=== PATIENT | female | born 1960 | race Caucasian/White ===

== ENCOUNTER 2017-04-18 12:18 | Emergency (ER) | payer OTHER ==
[~2017-04-18] VITALS: Ht 154.9 cm; Wt 76.2 kg
--- NOTE | ~2017-04-18 | EKG ---
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 GARCIA : 1960 Requested By: Tamiko Montesinos Order Number: [id number] MD: Kenji Singh Measurements Intervals [place] Rate: 69 P: 5 NV: 168 QRS: -34 QRSD: 88 T: 23 QT: 380 QTc: 407 Interpretive Statements Sinus rhythm Supraventricular bigeminy Left axis deviation Compared to ECG 03/07/1992 17:23:00 Atrial premature complex(es) now present Left-axis deviation now present Electronically Signed On 04-18-2017 13:18:28 [employer] by Kenji Singh [email or web address] <ELECTRONICALLY SIGNED> By: Kenji Singh MD 04/18/17 1318 27 Kenji Singh MD /ANKUSH
[2017-04-18] MEDS ORDERED: ERGOCALCIF50000 UNIT PO (12:30)
[2017-04-18] MEDS ORDERED: DICLOFENAC SOD50 M1 PO (12:30)
[2017-04-18] MEDS ORDERED: BRINTELLIX10 MG PO (12:30)
[2017-04-18 12:44] LABS: ABSOLUTE NEUTROPHILS 6.9 thou/uL (1.4-8.2); BASOPHILS 0.7 % (0.0-2.0); EOSINOPHILS 0.3 % (0.0-3.0); HEMATOCRIT 46.1 % (37.0-47.0); HEMOGLOBIN 15.8 gm/dL (12.0-15.0); LYMPHOCYTES 16.6 % (24.0-44.0); MCH 29.5 pg (26.0-34.0); MCHC 34.2 g/dL (28.0-37.0); MCV 86.1 fL (80.0-100.0); MONOCYTES 4.2 % (1.0-8.0); PLATELET COUNT 233 thou/uL (150-400); POLYS 78.2 % (36.0-66.0); RBC 5.35 mil/uL (4.20-5.00); RDW 13.7 % (10.5-14.5); WBC 8.8 thou/uL (4.0-11.0)
[2017-04-18 12:50] LABS: ANION GAP 13 mmol/L (7-16); BUN 16 mg/dL (7-18); CALCIUM 8.9 mg/dL (8.5-10.1); CHLORIDE 107 mmol/L (98-107); CO2 20 mmol/L (21-32); CREATININE 0.9 mg/dL (0.6-1.0); GLUCOSE 98 mg/dL (74-106); POTASSIUM 3.6 mmol/L (3.5-5.1); SODIUM 140 mmol/L (136-145)
[2017-04-18 12:58] LABS: TROPONIN-I < 0.04 ng/mL (<0.06)
[2017-04-18 14:11] LABS: ALBUMIN 3.6 g/dL (3.4-5.0); DIRECT BILIRUBIN 0.1 mg/dL (<0.1-0.3); TOTAL BILIRUBIN 0.5 mg/dL (<0.1-1.0); TOTAL PROTEIN 6.8 g/dL (6.4-8.2)
[2017-04-18] MEDS ORDERED: ZOFRAN ODT4 MG PO (14:50)
== END 2017-04-18 15:21 | disposition home or self-care (01) ==
LOC: ER 12:18
PROVIDERS: Emergency Medicine
DX: K21.9 Gastro-esophageal reflux disease without esophagitis (principal); R42 Dizziness and giddiness; R07.9 Chest pain, unspecified; R11.0 Nausea; F41.9 Anxiety disorder, unspecified; F32.9 Major depressive disorder, single episode, unspecified; Z88.6 Allergy status to analgesic agent; Z90.49 Acquired absence of other specified parts of digestive tract; Z90.710 Acquired absence of both cervix and uterus